=== PATIENT | female | born 1990 | race Caucasian/White ===

== ENCOUNTER 2017-11-24 13:03 | Emergency (ER) | payer OTHER ==
[~2017-11-24] VITALS: Ht 167.6 cm; Wt 122.5 kg
== END 2017-11-24 14:10 | disposition home or self-care (01) ==
LOC: ER 13:03
DX: M25.531 Pain in right wrist (principal); Z88.0 Allergy status to penicillin; Z87.891 Personal history of nicotine dependence
CPT/HCPCS: 29125; 73110; 99283; L3917

== ENCOUNTER 2021-03-12 17:53 | Emergency (ER) | payer OTHER ==
[~2021-03-12] VITALS: Ht 170.2 cm; Wt 104.3 kg
[2021-03-12] MEDS ORDERED: CYCL10 (19:05)
[2021-03-12] MEDS ORDERED: MELO7.5 (19:05)
[2021-03-12] MEDS ORDERED: TRAM50 (19:05)
[2021-03-12 19:48] LABS: Source, Urine Clean Catch
[2021-03-12 19:51] LABS: Appearance, Urine Cloudy (Clear); Bilirubin, Urine Neg (Neg); Blood, Urine 1+ (Neg); Color, Urine Yellow (P-Yellow); Glucose Qualitative, Urine Neg (Neg); Ketones, Urine 2+ (Neg); Leukocyte Esterase, Urine 1+ (Neg); Nitrite, Urine Neg (Neg); Protein, Urine 2+ (Neg); Specific Gravity, Urine 1.025 (1.003-1.022); Urobilinogen, Urine 1+ (Normal)
[2021-03-12 19:59] LABS: Bacteria Many /hpf; Red Blood Cells, Urine 0-2 /hpf (0-2); Squamous Epithelial Cells Many /hpf (Few)
[2021-03-12 20:00] LABS: Calcium Oxalate Crystals Few /hpf; Mucus Light (0-Heavy)
== END 2021-03-12 20:31 | disposition home or self-care (01) ==
LOC: ER 17:53
PROVIDERS: Physician Assistant
DX: M54.6 Pain in thoracic spine (principal); Z88.0 Allergy status to penicillin; Z87.891 Personal history of nicotine dependence; V49.40XA Driver injured in collision with unspecified motor vehicles in traffic accident, initial encounter; Y92.410 Unspecified street and highway as the place of occurrence of the external cause
CPT/HCPCS: 72080; 81001; 99285-25; A9270

== ENCOUNTER → 2022-01-13 | Outpatient (CLI) | payer OTHER ==
[~2022-01-13] MED LIST: CYCL10; MELO7.5; TRAM50
== END | disposition home or self-care (01) ==
LOC: LAB SHORT 17:30
DX: J06.0 Acute laryngopharyngitis (principal)
CPT/HCPCS: 87081; 87147

== ENCOUNTER → 2022-12-10 | Outpatient (CLI) | payer OTHER | END | disposition home or self-care (01) | LOC: LAB 11:50 → LAB SHORT 11:50 | DX: J35.3 Hypertrophy of tonsils with hypertrophy of adenoids (principal) | CPT/HCPCS: 87081; 87147 ==

== ENCOUNTER 2024-07-11 20:11 | Inpatient (IN) | payer OTHER ==
[~2024-07-11] VITALS: Ht 167.6 cm; Wt 109.6 kg
[2024-07-11] MEDS ORDERED: NS 1,000 ML IV SCH (21:00)
[2024-07-11] MEDS ORDERED: HYDROmorphone HCl/Pf 1MG SYR IV ONE (21:00)
[2024-07-11] MEDS ORDERED: Ondansetron HCl 2 MG / ML 2ML Vial IV ONE (21:00)
[2024-07-11] MEDS ORDERED: Vancomycin HCL 2,000 MG in NS 500 ML IV ONE (21:35)
[2024-07-11] MEDS ORDERED: RX Prepack 6 Tabs Oxycodone 5mg UD ONE (21:45)
[2024-07-11] MEDS ORDERED: IBUP800 PO (21:45)
[2024-07-11] MEDS ORDERED: BACTRIM DS TAB1 EAC1 PO (21:45)
[2024-07-11] MEDS ORDERED: CEPH500 PO (21:45)
[2024-07-11 21:46] LABS: BASOPHILS ABSOLUTE AUTO 0.05 K/mm3 (0.00-0.23); BASOPHILS PERCENT AUTO 0 % (0-2); EOSINOPHILS ABSOLUTE AUTO 0.11 K/mm3 (0.00-0.68); EOSINOPHILS PERCENT AUTO 1 % (0-6); Hematocrit 37.1 % (33.0-51.0); Hemoglobin 12.3 g/dL (11.5-16.0); IMMATURE GRAN ABSOLUTE AUTO 0.06 K/mm3 (0.00-0.10); IMMATURE GRAN PERCENT AUTO 0 % (0-1); LYMPHOCYTES ABSOLUTE AUTO 1.86 K/mm3 (0.84-5.20); LYMPHOCYTES PERCENT AUTO 11 % (21-46); MONOCYTES ABSOLUTE AUTO 1.44 K/mm3 (0.16-1.47); MONOCYTES PERCENT AUTO 8 % (4-13); Mean Corpuscular HGB 29.6 pg (26.0-34.0); Mean Corpuscular HGB Conc 33.2 g/dL (31.5-36.5); Mean Corpuscular Volume 89 fL (80-100); Mean Platelet Volume 12.7 fL (9.1-12.4); NEUTROPHILS ABSOLUTE AUTO 13.93 K/mm3 (1.96-9.15); NEUTROPHILS PERCENT AUTO 80 % (41-73); Platelet Count 257 K/mm3 (150-400); RDW Coefficient Variation 12.4 % (11.7-14.2); RDW Standard Deviation 40.9 fL (35.1-46.3); Red Blood Cell Count 4.15 M/mm3 (3.80-5.20); White Blood Cell Count 17.45 K/mm3 (4.00-11.30)
[2024-07-11 22:01] LABS: Bun/Creatinine Ratio 19.2 (12.0-20.0); Calcium, Blood 8.7 mg/dL (8.5-10.1); Creatinine, Blood 0.73 mg/dL (0.40-1.00); Potassium, Blood 3.4 mmol/L (3.5-5.5)
[2024-07-11] MEDS ORDERED: CeFAZolin Sodium 1,000 MG in NS 100 ML IV ONE (22:05)
[2024-07-11] MEDS ORDERED: CeFAZolin Sodium 1000 mg Vial ONE (22:32)
[2024-07-11] MEDS ORDERED: NS 100 ML IV ONE (22:33)
[2024-07-11] MEDS ORDERED: Potassium Chloride 20 MEQ TabCR PO ONE (23:45)
[2024-07-11] MEDS ORDERED: OxyCODONE HCL 5 MG TAB PO PRN (23:50)
[2024-07-11] MEDS ORDERED: Acetaminophen 325 MG TABLET PO PRN (23:50)
[2024-07-11] MEDS ORDERED: HYDROmorphone HCl/Pf 1MG SYR IV PRN (23:55)
[2024-07-12 01:41] VITALS: BP 115/53
--- NOTE | 2024-07-12 05:30 | NUR ---
SHIFT SUMMARY NEW ADMITT FROM ED AT APPROXIMATELY 0130 FOR SEPSIS RIGHT LEG DUE TO CELLULITUS. RIGHT IV WAS BLOWN. NEW IV PLACED AND REMAINDER OF CEFAZOLIN WAS ADMINISTERED. PATIENTHAD A ROAST BEEF SANDWICH WITH YOGURT. PATIENT WAS RECEPTIVE TO CARE, POLITE, AND ABLE TO A MAKE NEED KNOWN. VANCOMYCIN IV HUNG AT 0600. PATIENT APPEARED TO SLEEP THROUGH THE NIGHT WITH OUT ISSUES.
[2024-07-12] MEDS ORDERED: Vancomycin HCL 1,250 MG in NS 250 ML IV SCH (06:00)
[2024-07-12] MEDS ORDERED: NS 0 ML IV ONE (06:11)
[2024-07-12] MEDS ORDERED: CeFAZolin Sodium 1000 mg Vial ONE ×4 (06:11→23:27)
[2024-07-12 06:55] LABS: BASOPHILS ABSOLUTE AUTO 0.05 K/mm3 (0.00-0.23); BASOPHILS PERCENT AUTO 0 % (0-2); EOSINOPHILS ABSOLUTE AUTO 0.24 K/mm3 (0.00-0.68); EOSINOPHILS PERCENT AUTO 2 % (0-6); Hematocrit 36.8 % (33.0-51.0); Hemoglobin 12.3 g/dL (11.5-16.0); IMMATURE GRAN ABSOLUTE AUTO 0.04 K/mm3 (0.00-0.10); IMMATURE GRAN PERCENT AUTO 0 % (0-1); LYMPHOCYTES ABSOLUTE AUTO 2.37 K/mm3 (0.84-5.20); LYMPHOCYTES PERCENT AUTO 16 % (21-46); MONOCYTES PERCENT AUTO 11 % (4-13); Mean Corpuscular HGB 30.6 pg (26.0-34.0); Mean Corpuscular HGB Conc 33.4 g/dL (31.5-36.5); Mean Corpuscular Volume 92 fL (80-100); Mean Platelet Volume 12.5 fL (9.1-12.4); NEUTROPHILS PERCENT AUTO 71 % (41-73); Platelet Count 238 K/mm3 (150-400); RDW Coefficient Variation 12.5 % (11.7-14.2); RDW Standard Deviation 41.5 fL (35.1-46.3); Red Blood Cell Count 4.02 M/mm3 (3.80-5.20)
[2024-07-12 07:12] LABS: Bun/Creatinine Ratio 17.8 (12.0-20.0); Calcium, Blood 8.2 mg/dL (8.5-10.1); Creatinine, Blood 0.62 mg/dL (0.40-1.00); Potassium, Blood 3.9 mmol/L (3.5-5.5)
[2024-07-12] MEDS ORDERED: NS 250 ML IV PRN (07:30)
[2024-07-12 07:43] VITALS: BP 112/62
[2024-07-12] MEDS ORDERED: CeFAZolin Sodium 1,000 MG in NS 50 ML IV SCH (08:00)
[2024-07-12] MEDS ORDERED: Enoxaparin 40 MG/0.4 ML SYR SC SCH (09:00)
[2024-07-12] MEDS ORDERED: Lactobacil 2-S.Thermo-Bifido 1 1 Cap PO SCH (09:00)
--- NOTE | 2024-07-12 13:54 | NUR ---
NURSE NOTE R/T CONSULT: PER DR NOLAN, SURGICAL CONSULT REQUESTED ON THIS PATIENT ON AFTERNOON 07/12/24. THIS NURSE CONTACTED SURGICAL ON-CALL (DR Yvonne GIRARD); DR GIRARD STATED HIS SCHEDULE FOR TODAY WAS FULL, AND HE REQUESTED NURSING CONTACT THE ON-CALL ON FRIDAY 07/13. DR NOLAN WAS NOTIFIED OF DR GIRARD'S FULL SCHEDULE. CHARGE NURSE NOTIFIED ALSO. NO FURTHER ORDERS AT THIS TIME.
[2024-07-12] MEDS ORDERED: NS 50 ML IV ONE ×3 (14:08→23:27)
[2024-07-12 15:47] VITALS: BP 115/58
--- NOTE | 2024-07-12 18:44 | NUR ---
DAY SHIFT SUMMARY: NO ACUTE EVENTS TO REPORT THIS SHIFT. PT A&O X4; CALM AND COOPERATIVE WITH CARE. MEDICATED FOR LLE PAIN PER EMAR. SURGICAL CONSULT ORDERED THIS SHIFT; ON-CALL UNABLE TO SEE PATIENT R/T FULL SCHEDULE; ON-CALL REQUESTS NURSING CALL ON-CALL ON 07/13; HOSPITALIST AWARE. VANCO Q8 & ANCEF Q8 CONTINUING. BED LOW & LOCKED; CALL LIGHT WITHIN REACH-PT USES APPROPRIATELY. TIMOTHY.
[2024-07-12 20:35] VITALS: BP 128/73
[2024-07-12 21:21] LABS: Vancomycin, Trough 13.2 ug/mL (5.0-10.0)
[2024-07-13 02:52] VITALS: BP 120/64
[2024-07-13 04:54] LABS: BASOPHILS ABSOLUTE AUTO 0.04 K/mm3 (0.00-0.23); BASOPHILS PERCENT AUTO 0 % (0-2); EOSINOPHILS ABSOLUTE AUTO 0.26 K/mm3 (0.00-0.68); EOSINOPHILS PERCENT AUTO 2 % (0-6); Hematocrit 35.9 % (33.0-51.0); Hemoglobin 11.8 g/dL (11.5-16.0); IMMATURE GRAN ABSOLUTE AUTO 0.04 K/mm3 (0.00-0.10); IMMATURE GRAN PERCENT AUTO 0 % (0-1); LYMPHOCYTES ABSOLUTE AUTO 1.99 K/mm3 (0.84-5.20); LYMPHOCYTES PERCENT AUTO 17 % (21-46); MONOCYTES ABSOLUTE AUTO 1.42 K/mm3 (0.16-1.47); MONOCYTES PERCENT AUTO 12 % (4-13); Mean Corpuscular HGB 29.6 pg (26.0-34.0); Mean Corpuscular HGB Conc 32.9 g/dL (31.5-36.5); Mean Corpuscular Volume 90 fL (80-100); Mean Platelet Volume 12.6 fL (9.1-12.4); NEUTROPHILS ABSOLUTE AUTO 8.33 K/mm3 (1.96-9.15); NEUTROPHILS PERCENT AUTO 69 % (41-73); Platelet Count 268 K/mm3 (150-400); RDW Coefficient Variation 12.5 % (11.7-14.2); RDW Standard Deviation 41.6 fL (35.1-46.3); Red Blood Cell Count 3.98 M/mm3 (3.80-5.20); White Blood Cell Count 12.08 K/mm3 (4.00-11.30)
[2024-07-13 05:17] LABS: Bun/Creatinine Ratio 13.4 (12.0-20.0); Calcium, Blood 8.7 mg/dL (8.5-10.1); Creatinine, Blood 0.67 mg/dL (0.40-1.00); Potassium, Blood 4.2 mmol/L (3.5-5.5)
[2024-07-13] MEDS ORDERED: NS 50 ML IV ONE (07:47)
[2024-07-13] MEDS ORDERED: CeFAZolin Sodium 1000 mg Vial ONE (07:47)
[2024-07-13 07:56] VITALS: BP 131/71
[2024-07-13] MEDS ORDERED: Polyethylene Glycol 3350 17 gm PO ONE (09:40)
[2024-07-13] MEDS ORDERED: DiphenhydrAMINE HCL 25 MG Cap PO ONE (09:40)
[2024-07-13] MEDS ORDERED: Polyethylene Glycol 3350 17 gm PO PRN (12:20)
[2024-07-13] MEDS ORDERED: Docusate Sodium 100 MG Cap PO SCH (13:00)
--- NOTE | 2024-07-13 14:23 | NUR ---
SHIFT SUMMARY PT SLEEPING AT START OF SHIFT. WOKE EASILY FOR CARE. PT C/O CONSTIPATION. DR RUSSELL NOTIFIED; NEW ORDERS PLACED. BOWEL CARE GIVEN PER EMAR. SX CONSULT CALLED ON NOC SHIFT. LOVENOX HELD FOR POSSIBLE I&D; DR CRISTINA LATER TO . PT TO BE NPO AT [place] FOR I&D ON ABSCESS TO LLE. PT MEDICATED FOR C/O PAIN TO LLE AFTER SX CONSULT; PT REPORTING PAIN INCREASED WHEN SWELLING AND ABSCESS ASSESSED. NO FURTHER C/O PAIN TO PRESENT. PT HAD REPORTED SOME ITCHING R/T ABX PRIOR TO START OF SHIFT. DR RUSSELL AWARE. BENADRYL ORDERED AND GIVEN. NO FURTHER C/O. PT IS INDEPENDENT TO BSC NEEDED. A&O, ABLE TO MAKE NEEDS KNOWN. RESTING QUIETLY AT THIS TIME. CALL LT IN REACH.
[2024-07-13 16:33] VITALS: BP 141/73
[2024-07-13 20:16] VITALS: BP 126/70
[2024-07-13 21:33] LABS: Vancomycin, Trough 13.8 ug/mL (5.0-10.0)
[2024-07-14] VITALS (9 sets, daily range): BP systolic 123–143; BP diastolic 63–84
[2024-07-14 05:52] LABS: BASOPHILS ABSOLUTE AUTO 0.04 K/mm3 (0.00-0.23); BASOPHILS PERCENT AUTO 0 % (0-2); EOSINOPHILS ABSOLUTE AUTO 0.23 K/mm3 (0.00-0.68); EOSINOPHILS PERCENT AUTO 2 % (0-6); Hematocrit 36.4 % (33.0-51.0); Hemoglobin 12.1 g/dL (11.5-16.0); IMMATURE GRAN ABSOLUTE AUTO 0.03 K/mm3 (0.00-0.10); IMMATURE GRAN PERCENT AUTO 0 % (0-1); LYMPHOCYTES ABSOLUTE AUTO 2.03 K/mm3 (0.84-5.20); LYMPHOCYTES PERCENT AUTO 21 % (21-46); MONOCYTES ABSOLUTE AUTO 1.08 K/mm3 (0.16-1.47); MONOCYTES PERCENT AUTO 11 % (4-13); Mean Corpuscular HGB 30.3 pg (26.0-34.0); Mean Corpuscular HGB Conc 33.2 g/dL (31.5-36.5); Mean Corpuscular Volume 91 fL (80-100); Mean Platelet Volume 12.4 fL (9.1-12.4); NEUTROPHILS ABSOLUTE AUTO 6.11 K/mm3 (1.96-9.15); NEUTROPHILS PERCENT AUTO 64 % (41-73); Platelet Count 289 K/mm3 (150-400); RDW Coefficient Variation 12.4 % (11.7-14.2); RDW Standard Deviation 41.7 fL (35.1-46.3); Red Blood Cell Count 3.99 M/mm3 (3.80-5.20); White Blood Cell Count 9.52 K/mm3 (4.00-11.30)
--- NOTE | 2024-07-14 06:40 | NUR ---
Shift Summary Pt NPO since 0000 in anticipation of procedure today to drain abcesses in LLE. Pt rcvd all IV ABX without any itching or allergic reactions. Her IV in her R AC is slightly leaky, especially if she moves around. Her LLE is painful, pain is well managed by PO meds on EMAR. She rcvd 1 packet of Miralax tonight, no BM this shift and for 2 days per pt. She is AOx4 and able to ambulate to the BR with 1 assist. LLE is red and swollen.
[2024-07-14 06:52] LABS: Albumin, Blood 2.5 g/dL (3.4-5.0); Albumin/Globulin Ratio 0.5 (0.8-1.8); Bilirubin, Total 0.3 mg/dL (0.1-1.0); Bun/Creatinine Ratio 14.2 (12.0-20.0); Calcium, Blood 9.4 mg/dL (8.5-10.1); Creatinine, Blood 0.63 mg/dL (0.40-1.00); Globulin, Blood 4.7 g/dL (2.2-4.0); Potassium, Blood 4.2 mmol/L (3.5-5.5); Total Protein, Blood 7.2 g/dL (6.4-8.2)
[2024-07-14] MEDS ORDERED: Lactated Ringer's 1,000 ML IV SCH (15:10)
--- NOTE | 2024-07-14 15:15 | NUR ---
REMOVED IV FROM RIGHT AC DUE TO LEAKING
[2024-07-14] MEDS ORDERED: propofoL 40 ML IV ONE (16:41)
[2024-07-14] MEDS ORDERED: Lidocaine HCl 2% 20 ML MDV ONE (16:43)
--- NOTE | 2024-07-14 16:46 | NUR ---
SHIFT SUMMARY PT RESTING QUIETLY AT START OF SHIFT, DURING REPORT. WOKE EASILY FOR CARE. REPORTING IV SITE TO RAC STARTING TO LEAK. NEW IV PLACED TO LH. PT NPO FOR I&D ON LLE CELLULITIS. DR CRISTINA TO RM EARLIER TO CK ON PT. UP INDEPENDENTLY TO BTHRM NEEDED. SLEPT MOST OF THE DAY TODAY, WAITING FOR SX. PT WANTING TO EAT AND DRINK. TAKEN DOWN TO OR ABOUT AN HOUR AGO FOR I&D AND REMAINS THERE AT THIS TIME. IV ABX GIVEN PER EMAR THRU OUT THE DAY. WILL CONTINUE TO MX WHEN PT RETURNS.
[2024-07-14] MEDS ORDERED: FentaNYL Citrate 50 MCG/ML 2 ML Injection ONE (16:50)
[2024-07-14] MEDS ORDERED: Ondansetron HCl 2 MG / ML 2ML Vial ONE (17:02)
--- NOTE | 2024-07-14 18:06 | NUR ---
1755 PT RETURNED TO FROM PACU. PT ABLE TO STAND/PIVOT TO TX SELF TO BED CAREFULLY. PT AWAKE AND SMILING. NOW ABLE TO EAT AND DRINK. PT'S MOM TO AT BS. VSS; SEE CHART. MEPILEX DRSG TO LLE COVERING I&D SITE. DRSG ORDERS ON CHART.
[2024-07-15 03:59] VITALS: BP 108/65
[2024-07-15 05:28] LABS: BASOPHILS ABSOLUTE AUTO 0.05 K/mm3 (0.00-0.23); BASOPHILS PERCENT AUTO 1 % (0-2); EOSINOPHILS ABSOLUTE AUTO 0.32 K/mm3 (0.00-0.68); EOSINOPHILS PERCENT AUTO 3 % (0-6); Hematocrit 35.9 % (33.0-51.0); Hemoglobin 11.8 g/dL (11.5-16.0); IMMATURE GRAN ABSOLUTE AUTO 0.04 K/mm3 (0.00-0.10); IMMATURE GRAN PERCENT AUTO 0 % (0-1); LYMPHOCYTES ABSOLUTE AUTO 2.09 K/mm3 (0.84-5.20); LYMPHOCYTES PERCENT AUTO 22 % (21-46); MONOCYTES ABSOLUTE AUTO 0.98 K/mm3 (0.16-1.47); MONOCYTES PERCENT AUTO 10 % (4-13); Mean Corpuscular HGB 30.1 pg (26.0-34.0); Mean Corpuscular HGB Conc 32.9 g/dL (31.5-36.5); Mean Corpuscular Volume 92 fL (80-100); NEUTROPHILS ABSOLUTE AUTO 5.93 K/mm3 (1.96-9.15); NEUTROPHILS PERCENT AUTO 63 % (41-73); Platelet Count 331 K/mm3 (150-400); RDW Coefficient Variation 12.4 % (11.7-14.2); RDW Standard Deviation 41.5 fL (35.1-46.3); Red Blood Cell Count 3.92 M/mm3 (3.80-5.20); White Blood Cell Count 9.41 K/mm3 (4.00-11.30)
[2024-07-15 05:59] LABS: Albumin, Blood 2.4 g/dL (3.4-5.0); Albumin/Globulin Ratio 0.5 (0.8-1.8); Bilirubin, Total 0.3 mg/dL (0.1-1.0); Bun/Creatinine Ratio 18.8 (12.0-20.0); Calcium, Blood 8.8 mg/dL (8.5-10.1); Creatinine, Blood 0.69 mg/dL (0.40-1.00); Globulin, Blood 4.7 g/dL (2.2-4.0); Potassium, Blood 4.3 mmol/L (3.5-5.5); Total Protein, Blood 7.1 g/dL (6.4-8.2)
--- NOTE | 2024-07-15 06:40 | NUR ---
Shift Summary No acute changes. Pt medicated for pain in LLE as needed. I changed the dressing on post abcess drainage bandaging as it was saturated at 0100. She slept well t/o most of the night, rcving IV ABX. AOx4, able to use BSC independently.
[2024-07-15 07:44] VITALS: BP 110/56
[2024-07-15 14:35] VITALS: BP 128/59
--- NOTE | 2024-07-15 18:27 | NUR ---
SHIFT SUMMARY PT A&OX4, VSS, TOLERATING PO, VOIDING, AND PAIN MANAGED PER EMAR. LLE CONT TO DRAIN, I&D PERFORMED YESTERDAY. PT WORKED W/ PHYSICAL THERPY THIS SHIFT, SEE THERAPY NOTE. NO OTHER ACUTE CHANGES. CALL LIGHT WITHIN REACH AND PT ABLE TO MAKE NEEDS KNOWN.
[2024-07-15 20:43] VITALS: BP 119/55
[2024-07-16 04:48] VITALS: BP 127/62
--- NOTE | 2024-07-16 06:28 | NUR ---
SHIFT SUMMARY PATIENT APPEARED TO SLEEP THROUGH THE NIGHT WITH OUT ISSUE. WAS ASSISTED TO BED SIDE COMODE BY STAFF. AT ONE POINT PATIENT WANTED TO TAKE A SHOWERBUT CHANGED HER MIND. BED ON LOW POSITON, RAILS TIMES 2, CALL LIGHT WITHIN REACH.
[2024-07-16 06:29] LABS: BASOPHILS ABSOLUTE AUTO 0.03 K/mm3 (0.00-0.23); BASOPHILS PERCENT AUTO 0 % (0-2); EOSINOPHILS PERCENT AUTO 4 % (0-6); Hematocrit 37.6 % (33.0-51.0); Hemoglobin 12.2 g/dL (11.5-16.0); IMMATURE GRAN ABSOLUTE AUTO 0.02 K/mm3 (0.00-0.10); IMMATURE GRAN PERCENT AUTO 0 % (0-1); LYMPHOCYTES ABSOLUTE AUTO 1.95 K/mm3 (0.84-5.20); LYMPHOCYTES PERCENT AUTO 26 % (21-46); MONOCYTES ABSOLUTE AUTO 0.58 K/mm3 (0.16-1.47); MONOCYTES PERCENT AUTO 8 % (4-13); Mean Corpuscular HGB 29.6 pg (26.0-34.0); Mean Corpuscular HGB Conc 32.4 g/dL (31.5-36.5); Mean Corpuscular Volume 91 fL (80-100); Mean Platelet Volume 11.2 fL (9.1-12.4); NEUTROPHILS ABSOLUTE AUTO 4.52 K/mm3 (1.96-9.15); NEUTROPHILS PERCENT AUTO 61 % (41-73); Platelet Count 352 K/mm3 (150-400); RDW Coefficient Variation 12.3 % (11.7-14.2); RDW Standard Deviation 40.8 fL (35.1-46.3); Red Blood Cell Count 4.12 M/mm3 (3.80-5.20)
[2024-07-16 06:50] LABS: Albumin, Blood 2.4 g/dL (3.4-5.0); Albumin/Globulin Ratio 0.5 (0.8-1.8); Bilirubin, Total 0.2 mg/dL (0.1-1.0); Bun/Creatinine Ratio 19.3 (12.0-20.0); Calcium, Blood 8.9 mg/dL (8.5-10.1); Creatinine, Blood 0.67 mg/dL (0.40-1.00); Globulin, Blood 5.1 g/dL (2.2-4.0); Potassium, Blood 4.2 mmol/L (3.5-5.5); Total Protein, Blood 7.5 g/dL (6.4-8.2)
[2024-07-16 08:11] VITALS: BP 121/56
[2024-07-16] MEDS ORDERED: ACET325 PO (11:33)
[2024-07-16] MEDS ORDERED: CEPH500 PO (11:34)
[2024-07-16] MEDS ORDERED: VISBIOME 112.51 EACH PO (11:34)
--- NOTE | 2024-07-16 11:54 | NUR ---
PT INSTRUCTED ON DRESSING CHANGE TO LLE AND VERBALIZES UNDERSTANDING. DRESSINGS FOR HOME USE GIVEN TO PATIENT. DISCHARGE INSTRUCTIONS REVIEWED WITH PT WHO VERBALIZES UNDERSTANDING OF. PT AWAITNG HER MOTHER ARRIVAL TO DISCHARGE TO HOME
--- NOTE | 2024-07-16 13:05 | NUR ---
DISCHARGE NOTE PT DISCHARGED HOME AT APPROX 1230. PT PROVIDED W/ VERBAL, WRITTEN, AND DEMONSTRATED INSTRUCTIONS FROM BREAK CLAUDIA BENAVIDEZ AND REPORTED UNDERSTANDING. PT A&OX4, VSS, AMB W/ SBA, TOLERATING PO, VOIDING, AND PAIN MANAGED. BELONINGS WERE RETURNED AND PT ESCOURTED OUT VIA W/C BY ROCIO VERDUGO.
== END 2024-07-16 12:45 | disposition home or self-care (01) | DRG 872 ==
LOC: ER 20:11 → MEDS 20:12 → ENPENDDIS 07-16 11:42 → MEDS 07-16 12:45
PROVIDERS: Emergency Medicine; Student in an Organized Health Care Education/Training Program; ADMIT Family Medicine
PROC: 3E03329 Introduction of Other Anti-infective into Peripheral Vein, Percutaneous Approach (ICD-10-PCS; principal; 2024-07-12)
PROC: 0Y9J0ZZ Drainage of Left Lower Leg, Open Approach (ICD-10-PCS; 2024-07-14)
DX: A41.9 Sepsis, unspecified organism (principal); L02.416 Cutaneous abscess of left lower limb; L03.116 Cellulitis of left lower limb; E87.6 Hypokalemia; M54.50 Low back pain, unspecified; G89.29 Other chronic pain; K59.04 Chronic idiopathic constipation; R74.01 Elevation of levels of liver transaminase levels; Z87.891 Personal history of nicotine dependence; Z88.0 Allergy status to penicillin; Z79.899 Other long term (current) drug therapy; Z98.890 Other specified postprocedural states; Z79.891 Long term (current) use of opiate analgesic
CPT/HCPCS: 36415; 73701; 80048; 80053; 80202; 83605; 84703; 85025; 87040; 87070; 87075; 87077; 87147; 87186; 87205; 96361; 96365; 96366; 96367; 96372; 96374-59; 96375; 96375-59; 96376; 96376-59; 97110; 97116; 97161; 97530; 99284-25; A9270; G0378; J0690; J1170; J1650; J2405; J2704; J3010; J3370; J7030; J7040; J7050; J7120; Q9967

== ENCOUNTER 2024-10-11 19:39 | Emergency (ER) | payer OTHER ==
[~2024-10-11] VITALS: Ht 170.2 cm; Wt 104.3 kg
[~2024-10-11 19:39] MED LIST changes: +ACET325 PO; +BACTRIM DS TAB1 EAC1 PO; +CEPH500 PO; +IBUP800 PO; +VISBIOME 112.51 EACH PO
[2024-10-11 19:45] VITALS: BP 133/90
[2024-10-11] MEDS ORDERED: Diphth,Pertuss(Acell),Tet Vac 0.5 ML VIAL IM ONE (19:55)
== END 2024-10-11 20:09 | disposition home or self-care (01) ==
LOC: ER 19:39
DX: S81.831A Puncture wound without foreign body, right lower leg, initial encounter (principal); W22.8XXA Striking against or struck by other objects, initial encounter; Z87.891 Personal history of nicotine dependence; Z88.0 Allergy status to penicillin
CPT/HCPCS: 90471; 90715; 99283-25

== ENCOUNTER 2025-02-16 19:12 | Emergency (ER) | payer OTHER ==
[~2025-02-16] VITALS: Ht 160 cm; Wt 113.4 kg
[2025-02-16 19:59] LABS: BASOPHILS ABSOLUTE AUTO 0.04 K/mm3 (0.00-0.23); BASOPHILS PERCENT AUTO 0 % (0-2); EOSINOPHILS ABSOLUTE AUTO 0.14 K/mm3 (0.00-0.68); EOSINOPHILS PERCENT AUTO 1 % (0-6); Hemoglobin 14.4 g/dL (11.5-16.0); IMMATURE GRAN ABSOLUTE AUTO 0.04 K/mm3 (0.00-0.10); IMMATURE GRAN PERCENT AUTO 0 % (0-1); LYMPHOCYTES ABSOLUTE AUTO 2.34 K/mm3 (0.84-5.20); LYMPHOCYTES PERCENT AUTO 20 % (21-46); MONOCYTES ABSOLUTE AUTO 1.02 K/mm3 (0.16-1.47); MONOCYTES PERCENT AUTO 9 % (4-13); Mean Corpuscular HGB Conc 33.5 g/dL (31.5-36.5); Mean Corpuscular Volume 90 fL (80-100); Mean Platelet Volume 11.9 fL (9.1-12.4); NEUTROPHILS ABSOLUTE AUTO 8.42 K/mm3 (1.96-9.15); NEUTROPHILS PERCENT AUTO 70 % (41-73); Platelet Count 278 K/mm3 (150-400); RDW Coefficient Variation 12.3 % (11.7-14.2); RDW Standard Deviation 40.6 fL (35.1-46.3)
[2025-02-16 20:17] LABS: Albumin, Blood 3.8 g/dL (3.4-5.0); Bilirubin, Total 0.3 mg/dL (0.1-1.0); Bun/Creatinine Ratio 11.4 (12.0-20.0); Calcium, Blood 8.8 mg/dL (8.5-10.1); Creatinine, Blood 0.7 mg/dL (0.40-1.00); Potassium, Blood 4.2 mmol/L (3.5-5.5); Total Protein, Blood 7.8 g/dL (6.4-8.2)
[2025-02-16] MEDS ORDERED: Clindamycin HCl 150 MG Cap PO ONE (21:05)
[2025-02-16] MEDS ORDERED: Ketorolac Tromethamine 15mg Vial IM ONE (21:05)
[2025-02-16 22:30] VITALS: BP 128/78
[2025-02-16] MEDS ORDERED: Cleocin HCl150 MG PO (22:34)
== END 2025-02-16 22:41 | disposition home or self-care (01) ==
LOC: ER 19:12
PROVIDERS: Student in an Organized Health Care Education/Training Program
DX: K08.89 Other specified disorders of teeth and supporting structures (principal); Z87.891 Personal history of nicotine dependence; Z88.0 Allergy status to penicillin; Z79.1 Long term (current) use of non-steroidal anti-inflammatories (NSAID); Z79.2 Long term (current) use of antibiotics
CPT/HCPCS: 70487; 80053; 85025; 96372-59; 99284-25; A9270; J1885; Q9967

== ENCOUNTER 2025-02-20 10:55 | Emergency (ER) | payer OTHER ==
[~2025-02-20] VITALS: Ht 167.6 cm; Wt 104.3 kg
[~2025-02-20 10:55] MED LIST changes: +Cleocin HCl150 MG PO
[2025-02-20 11:41] LABS: BASOPHILS ABSOLUTE AUTO 0.04 K/mm3 (0.00-0.23); BASOPHILS PERCENT AUTO 0 % (0-2); EOSINOPHILS ABSOLUTE AUTO 0.26 K/mm3 (0.00-0.68); EOSINOPHILS PERCENT AUTO 3 % (0-6); Hematocrit 42.8 % (33.0-51.0); IMMATURE GRAN ABSOLUTE AUTO 0.03 K/mm3 (0.00-0.10); IMMATURE GRAN PERCENT AUTO 0 % (0-1); LYMPHOCYTES ABSOLUTE AUTO 2.44 K/mm3 (0.84-5.20); LYMPHOCYTES PERCENT AUTO 23 % (21-46); MONOCYTES ABSOLUTE AUTO 0.92 K/mm3 (0.16-1.47); MONOCYTES PERCENT AUTO 9 % (4-13); Mean Corpuscular HGB 29.5 pg (26.0-34.0); Mean Corpuscular HGB Conc 32.7 g/dL (31.5-36.5); Mean Corpuscular Volume 90 fL (80-100); Mean Platelet Volume 11.4 fL (9.1-12.4); NEUTROPHILS PERCENT AUTO 65 % (41-73); Platelet Count 297 K/mm3 (150-400); RDW Coefficient Variation 12.2 % (11.7-14.2); RDW Standard Deviation 40.8 fL (35.1-46.3); Red Blood Cell Count 4.75 M/mm3 (3.80-5.20); White Blood Cell Count 10.49 K/mm3 (4.00-11.30)
[2025-02-20] MEDS ORDERED: Ketorolac Tromethamine 30mg Vial IV ONE (12:15)
[2025-02-20] MEDS ORDERED: Acetaminophen 325 MG TABLET PO ONE (12:15)
[2025-02-20 15:14] VITALS: BP 136/79
== END 2025-02-20 15:15 | disposition home or self-care (01) ==
LOC: ER 10:55
PROVIDERS: Student in an Organized Health Care Education/Training Program
DX: K04.7 Periapical abscess without sinus (principal); Z87.891 Personal history of nicotine dependence
CPT/HCPCS: 70487; 83605; 85025; 93005; 93010; 96374-59; 99284-25; A9270; J1885; Q9967

== ENCOUNTER 2025-07-21 09:02 | Emergency (ER) | payer OTHER ==
[~2025-07-21] VITALS: Ht 162.6 cm; Wt 117.9 kg
[2025-07-21] MEDS ORDERED: HYDROmorphone HCl/Pf 1MG SYR IV ONE (09:10)
[2025-07-21] MEDS ORDERED: Ondansetron HCl 2 MG / ML 2ML Vial IV ONE (09:10)
[2025-07-21] MEDS ORDERED: Ketamine HCl 100 MG / ML 5ML Vial IV ONE (09:30)
[2025-07-21] MEDS ORDERED: LORazepam 2 MG/ML 1ML Injection IV ONE ×2 (09:30→12:45)
[2025-07-21 11:15] VITALS: BP 177/108
[2025-07-21] MEDS ORDERED: MONDOXYNE NL100 MG PO (14:44)
[2025-07-21] MEDS ORDERED: Norco 5-325 Ta1 EACH PO (14:44)
== END 2025-07-21 15:02 | disposition home or self-care (01) ==
LOC: ER 09:02
DX: S51.852A Open bite of left forearm, initial encounter (principal); S51.851A Open bite of right forearm, initial encounter; S30.811A Abrasion of abdominal wall, initial encounter; Z88.0 Allergy status to penicillin; Z87.891 Personal history of nicotine dependence; W54.0XXA Bitten by dog, initial encounter
CPT/HCPCS: 12007; 73090; 96374-59; 96375-59; 96376-59; 99283-25; A9270; J1171; J2060; J2405

== ENCOUNTER 2025-07-27 11:16 | Emergency (ER) | payer OTHER ==
[~2025-07-27] VITALS: Ht 167.6 cm; Wt 117.9 kg
[~2025-07-27 11:16] MED LIST changes: +MONDOXYNE NL100 MG PO; +Norco 5-325 Ta1 EACH PO
[2025-07-27 11:46] VITALS: BP 130/72
[2025-07-27] MEDS ORDERED: CLIN300 PO (12:00)
[2025-07-27] MEDS ORDERED: SULTRIDS PO (12:00)
== END 2025-07-27 12:30 | disposition home or self-care (01) ==
LOC: ER 11:16
DX: S41.152D Open bite of left upper arm, subsequent encounter (principal); S41.151D Open bite of right upper arm, subsequent encounter; Z88.0 Allergy status to penicillin; Z87.891 Personal history of nicotine dependence; W54.0XXD Bitten by dog, subsequent encounter
CPT/HCPCS: 99282